=== PATIENT | female | born 1965 | race Caucasian/White ===

== ENCOUNTER 2017-10-31 16:23 | Emergency (ER) | payer MEDICARE, OTHER ==
[~2017-10-31] VITALS: Ht 597.6 cm; Wt 60.0 kg
[~2017-10-31 16:23] MED LIST: ALBU8.5H8 INH; BENZ0.5T38 PO; DULO30CA51 PO; EST1T PO; MELA1TAB28 PO; OLAN2.5T28 PO; TRAM50TA2 PO; TRAZ-218 PO
[2017-10-31 16:27] VITALS: BP 113/65
[2017-10-31] MEDS ORDERED: diphenhydrAMINE 25mg capsule PO ONE (17:20)
[2017-10-31] MEDS ORDERED: LORazepam 1 MG tablet PO ONE (17:20)
[2017-10-31 17:40] LABS: URINE HCG NEGATIVE (NEG)
[2017-10-31 17:41] LABS: BASOPHILS % (AUTO) 0.8 % (0-1); EOSINOPHILS # (AUTO) 0.3 X10'3 (0-0.9); EOSINOPHILS % (AUTO) 4.8 % (0-6); HEMATOCRIT 35.2 % (35.0-45.0); HEMOGLOBIN 12.1 g/dl (12.0-16.0); LYMPHOCYTES % (AUTO) 36.3 % (21-51); MEAN CORPUSCULAR HEMOGLOBIN 29.8 PG (27.0-31.0); MEAN CORPUSCULAR HGB CONC 34.3 % (33.0-36.5); MEAN CORPUSCULAR VOLUME 86.7 FL (78-98); MEAN PLATELET VOLUME 8.9 FL (7.4-10.4); MONOCYTES # (AUTO) 0.4 X10'3 (0-0.9); MONOCYTES % (AUTO) 7.6 % (2-12); NEUTROPHILS # (AUTO) 2.8 X10'3 (1.8-7.7); NEUTROPHILS % (AUTO) 50.5 % (42-75); PLATELET COUNT 238 X10'3 (140-440); RED BLOOD COUNT 4.06 X10'6 (4.20-5.60); RED CELL DISTRIBUTION WIDTH 13.3 % (11.5-14.5); WHITE BLOOD COUNT 5.5 X10'3 (4.5-11.0)
[2017-10-31 17:51] LABS: ALANINE AMINOTRANSFERASE 35 U/L (12-78); ALBUMIN 3.5 G/DL (3.4-5.0); ALBUMIN/GLOBULIN RATIO 1.1 (1.1-1.5); ALKALINE PHOSPHATASE 87 IU/L (46-116); ANION GAP 9 (8-16); ASPARTATE AMINO TRANSFERASE 21 U/L (10-37); BILIRUBIN,TOTAL 0.2 MG/DL (0.1-1.0); BLOOD UREA NITROGEN 14 MG/DL (7-18); BUN/CREATININE RATIO 16.7 (6.6-38.0); CALCIUM 8.8 MG/DL (8.5-10.1); CHLORIDE 102 MMOL/L (99-107); CREATININE 0.84 MG/DL (0.40-0.90); GLUCOSE 93 MG/DL (70-104); POTASSIUM 3.6 MMOL/L (3.5-5.1); SODIUM 139 MMOL/L (135-145); TOTAL CARBON DIOXIDE 28.4 MMOL/L (24-32); TOTAL PROTEIN 6.6 G/DL (6.4-8.2); eGFR 71 ML/MIN
[2017-10-31 17:51] LABS: URINE AMPHETAMINE SCREEN POSITIVE (Neg); URINE BARBITUATE SCREEN NEGATIVE (Neg); URINE BENZODIAZEPINES SCREEN NEGATIVE (Neg); URINE CANNABINOID SCREEN NEGATIVE (Neg); URINE COCAINE SCREEN NEGATIVE (Neg); URINE METHADONE SCREEN NEGATIVE (Neg); URINE OPIATE SCREEN POSITIVE (Neg); URINE PHENCYCLIDINE SCREEN NEGATIVE (Neg)
[2017-10-31 17:54] LABS: CLARITY,URINE CLEAR (Clear); COLOR,URINE YELLOW (Yellow); GLUCOSE, URINE NEGATIVE (Neg); KETONES,URINE NEGATIVE (Neg); LEUKOCYTE ESTERASE ,URINE NEGATIVE (Neg); NITRITES, URINE NEGATIVE (Neg); OCCULT BLOOD,URINE NEGATIVE (Neg); PROTEIN,URINE NEGATIVE (Neg); UROBILINOGEN,URINE 0.2 E.U/dL (0.2-1.0)
[2017-10-31 17:59] LABS: ETHANOL < 0.010 GM/DL (0.0-0.010)
[2017-10-31 18:00] LABS: UA COLLECTION TYPE CLN CATCH MIDSTREAM
== END 2017-10-31 23:19 | disposition home or self-care (01) ==
LOC: ER 16:24
DX: R45.851 Suicidal ideations (principal); F41.9 Anxiety disorder, unspecified; F32.9 Major depressive disorder, single episode, unspecified; F12.10 Cannabis abuse, uncomplicated; F15.10 Other stimulant abuse, uncomplicated; M19.90 Unspecified osteoarthritis, unspecified site; G89.29 Other chronic pain; M25.572 Pain in left ankle and joints of left foot; Z88.0 Allergy status to penicillin; Z88.1 Allergy status to other antibiotic agents
CPT/HCPCS: 36415; 80053; 80305; 80320; 81003; 81025; 84443; 85025; 99285; Q0163

== ENCOUNTER 2017-10-31 21:00 | Inpatient (IN) | payer MEDICARE, OTHER ==
[~2017-10-31] VITALS: Ht 175.3 cm; Wt 63.9 kg
[2017-10-31 23:12] VITALS: BP 81/49
[2017-10-31 23:15] VITALS: BP 104/66
[2017-10-31] MEDS ORDERED: acetaminophen 325mg tablet PO PRN ×2 (23:20)
[2017-10-31] MEDS ORDERED: traZODone 50mg tablet PO PRN (23:20)
[2017-10-31] MEDS ORDERED: mag hydrox/Alum hydrox/simeth 30ml oral suspension PO PRN (23:20)
[2017-10-31] MEDS ORDERED: LORazepam 0.5 MG tablet PO PRN (23:20)
[2017-10-31] MEDS ORDERED: magnesium hydroxide 30ml (MOM) UD suspension PO PRN (23:20)
[2017-11-01] MEDS ORDERED: albuterol 2.5 MG/3 ML nebule NEB PRN (00:35)
[2017-11-01] MEDS: traMADol 50MG tablet PO SCH ×2 (02:00→08:09)
[2017-11-01 08:00] VITALS: BP 98/61
[2017-11-01] MEDS: estradiol 1mg tablet PO SCH (08:00)
[2017-11-01 09:10] LABS: HEMOGLOBIN A1C 5.8 % (4.5-6.2)
[2017-11-01 09:15] LABS: CHOL/HDL RATIO 3.2 (0.00-4.99); CHOLESTEROL 199 MG/DL (0-200); HDL CHOLESTEROL 63 MG/DL (35-60); LDL CHOLESTEROL 114 MG/DL (50-100); TRIGLYCERIDES 104 MG/DL (20-135)
[2017-11-01] MEDS ORDERED: venlafaxine XR 37.5mg cap (Q24H) PO ONE (09:15)
[2017-11-01] MEDS ORDERED: normal saline 1000ml 1,000 ML IV SCH (09:16)
[2017-11-01] MEDS: potassium chloride 10mEq ER tablet PO SCH (09:20)
[2017-11-01] MEDS ORDERED: LORazepam 0.5 MG tablet PO PRN (09:20)
[2017-11-01 09:43] LABS: MAGNESIUM 2.1 MG/DL (1.5-2.4); PHOSPHORUS 4.1 MG/DL (2.3-4.5)
[2017-11-01] MEDS: traMADol 50MG tablet PO PRN ×2 (13:44→19:56)
[2017-11-01 20:00] VITALS: BP 97/60
[2017-11-02] MEDS: pantoprazole 40mg Tablet.DR PO SCH (06:57)
[2017-11-02] MEDS: traMADol 50MG tablet PO PRN ×3 (06:57→19:08)
[2017-11-02] MEDS: estradiol 1mg tablet PO SCH (07:51)
[2017-11-02] MEDS: venlafaxine XR 75mg capsule (Q24H) PO SCH (07:51)
[2017-11-02] MEDS: potassium chloride 10mEq ER tablet PO SCH (07:51)
[2017-11-02 08:00] VITALS: BP 107/64
[2017-11-02] MEDS ORDERED: SUMAtriptan 25 MG tablet PO ONE (09:35)
[2017-11-02] MEDS: traZODone 50mg tablet PO PRN (20:11)
[2017-11-02 22:25] VITALS: BP 92/68
[2017-11-03] MEDS: traMADol 50MG tablet PO PRN ×2 (03:24→16:12)
[2017-11-03] MEDS: aspirin/acetaminophen/caffeine tablet PO PRN ×2 (07:06→19:41)
[2017-11-03 08:00] VITALS: BP 103/64
[2017-11-03] MEDS: pantoprazole 40mg Tablet.DR PO SCH (08:10)
[2017-11-03] MEDS: venlafaxine XR 75mg capsule (Q24H) PO SCH (08:10)
[2017-11-03] MEDS: estradiol 1mg tablet PO SCH (08:10)
[2017-11-03] MEDS: potassium chloride 10mEq ER tablet PO SCH (08:10)
[2017-11-03 20:19] VITALS: BP 92/45
[2017-11-03] MEDS: traZODone 50mg tablet PO PRN (20:55)
[2017-11-03] MEDS: gabapentin 100mg capsule PO SCH (20:55)
[2017-11-04] MEDS: traMADol 50MG tablet PO PRN ×3 (05:40→19:17)
[2017-11-04] MEDS: pantoprazole 40mg Tablet.DR PO SCH (07:09)
[2017-11-04 08:00] VITALS: BP 105/52
[2017-11-04] MEDS: venlafaxine XR 75mg capsule (Q24H) PO SCH (08:14)
[2017-11-04] MEDS: estradiol 1mg tablet PO SCH (08:14)
[2017-11-04] MEDS: potassium chloride 10mEq ER tablet PO SCH (08:14)
[2017-11-04] MEDS: gabapentin 100mg capsule PO SCH ×3 (08:14→20:32)
[2017-11-04] MEDS: aspirin/acetaminophen/caffeine tablet PO PRN (11:38)
[2017-11-04 20:00] VITALS: BP 93/57
[2017-11-04] MEDS: traZODone 50mg tablet PO PRN (20:32)
[2017-11-05] MEDS: aspirin/acetaminophen/caffeine tablet PO PRN (06:59)
[2017-11-05] MEDS: potassium chloride 10mEq ER tablet PO SCH (07:54)
[2017-11-05] MEDS: pantoprazole 40mg Tablet.DR PO SCH (07:54)
[2017-11-05] MEDS: gabapentin 100mg capsule PO SCH ×3 (07:54→20:44)
[2017-11-05] MEDS: venlafaxine XR 75mg capsule (Q24H) PO SCH (07:54)
[2017-11-05] MEDS: estradiol 1mg tablet PO SCH (07:54)
[2017-11-05 08:00] VITALS: BP 110/64
[2017-11-05] MEDS: traMADol 50MG tablet PO PRN (13:04)
[2017-11-05 19:34] VITALS: BP 104/64
[2017-11-05] MEDS: traZODone 50mg tablet PO PRN (20:43)
[2017-11-06] MEDS: aspirin/acetaminophen/caffeine tablet PO PRN (03:26)
[2017-11-06] MEDS: traZODone 50mg tablet PO PRN ×2 (03:35→20:15)
[2017-11-06] MEDS: venlafaxine XR 75mg capsule (Q24H) PO SCH (07:45)
[2017-11-06] MEDS: pantoprazole 40mg Tablet.DR PO SCH (07:45)
[2017-11-06] MEDS: estradiol 1mg tablet PO SCH (07:45)
[2017-11-06] MEDS: potassium chloride 10mEq ER tablet PO SCH (07:45)
[2017-11-06] MEDS: gabapentin 100mg capsule PO SCH ×3 (07:47→20:15)
[2017-11-06 08:00] VITALS: BP 90/52
[2017-11-06] MEDS: traMADol 50MG tablet PO PRN (13:16)
[2017-11-06 19:00] VITALS: BP 100/61
[2017-11-06] MEDS: prazosin 1mg capsule PO SCH (21:00)
[2017-11-07 08:00] VITALS: BP 95/45
[2017-11-07] MEDS: estradiol 1mg tablet PO SCH (08:30)
[2017-11-07] MEDS: gabapentin 100mg capsule PO SCH ×3 (08:30→20:19)
[2017-11-07] MEDS: pantoprazole 40mg Tablet.DR PO SCH (08:30)
[2017-11-07] MEDS: potassium chloride 10mEq ER tablet PO SCH (08:30)
[2017-11-07] MEDS: venlafaxine XR 75mg capsule (Q24H) PO SCH (08:30)
[2017-11-07] MEDS: traZODone 50mg tablet PO PRN (20:18)
[2017-11-07] MEDS: prazosin 1mg capsule PO SCH (20:21)
[2017-11-07 20:43] VITALS: BP 103/60
[2017-11-08 08:00] VITALS: BP 98/59
[2017-11-08] MEDS: gabapentin 100mg capsule PO SCH ×2 (08:09→12:43)
[2017-11-08] MEDS: pantoprazole 40mg Tablet.DR PO SCH (08:09)
[2017-11-08] MEDS: potassium chloride 10mEq ER tablet PO SCH (08:09)
[2017-11-08] MEDS: venlafaxine XR 75mg capsule (Q24H) PO SCH (08:09)
[2017-11-08] MEDS: estradiol 1mg tablet PO SCH (08:09)
[2017-11-08] MEDS ORDERED: POTA10TA19 PO (13:47)
[2017-11-08] MEDS ORDERED: GABA-532 PO (13:47)
[2017-11-08] MEDS ORDERED: VENL75CA61 PO (13:47)
[2017-11-08] MEDS ORDERED: TRAM50TA2 PO (13:47)
[2017-11-08] MEDS ORDERED: TRAZ-219 PO (13:47)
== END 2017-11-08 14:45 | disposition home or self-care (01) | DRG 885 ==
LOC: ADULT MH 21:00
PROVIDERS: ADMIT Psychiatry & Neurology Psychiatry; ATTEND Psychiatry & Neurology Psychiatry
DX: F33.2 Major depressive disorder, recurrent severe without psychotic features (principal); R45.851 Suicidal ideations; F41.9 Anxiety disorder, unspecified; I95.9 Hypotension, unspecified; F12.10 Cannabis abuse, uncomplicated; F20.9 Schizophrenia, unspecified; E10.9 Type 1 diabetes mellitus without complications; G89.4 Chronic pain syndrome; M25.572 Pain in left ankle and joints of left foot; M41.9 Scoliosis, unspecified; M19.029 Primary osteoarthritis, unspecified elbow; G43.909 Migraine, unspecified, not intractable, without status migrainosus; F15.21 Other stimulant dependence, in remission; K31.9 Disease of stomach and duodenum, unspecified; Z90.710 Acquired absence of both cervix and uterus; Z79.4 Long term (current) use of insulin; Z88.0 Allergy status to penicillin; Z88.1 Allergy status to other antibiotic agents; Z88.8 Allergy status to other drugs, medicaments and biological substances; Z85.41 Personal history of malignant neoplasm of cervix uteri
CPT/HCPCS: 36415; 80061; 83036; 83735; 84100; 87070; 93005; 99285; J7030

== ENCOUNTER 2018-10-13 15:45 | Emergency (ER) | payer MEDICARE ==
[~2018-10-13] VITALS: Ht 175.3 cm; Wt 69.0 kg
[~2018-10-13 15:45] MED LIST changes: -BENZ0.5T38 PO; -DULO30CA51 PO; +GABA-532 PO; -MELA1TAB28 PO; -OLAN2.5T28 PO; +POTA10TA19 PO; -TRAZ-218 PO; +TRAZ-219 PO; +VENL75CA61 PO
[2018-10-13 15:52] VITALS: BP 128/53
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
--- NOTE | 2018-10-13 16:08 | NUR ---
PATIENT AMBULATED TO XRAY WITH STEADY GAIT.
[2018-10-13] MEDS ORDERED: TRAM50TA2 PO (16:29)
== END 2018-10-13 16:49 | disposition home or self-care (01) ==
LOC: ER 15:45
DX: R07.81 Pleurodynia (principal); R07.89 Other chest pain; M19.90 Unspecified osteoarthritis, unspecified site; G89.29 Other chronic pain; F32.9 Major depressive disorder, single episode, unspecified; F12.90 Cannabis use, unspecified, uncomplicated; F15.90 Other stimulant use, unspecified, uncomplicated; Z98.890 Other specified postprocedural states; Z88.0 Allergy status to penicillin; Z88.1 Allergy status to other antibiotic agents; Z79.899 Other long term (current) drug therapy; V43.92XA Unspecified car occupant injured in collision with other type car in traffic accident, initial encounter; Y93.89 Activity, other specified; Y92.488 Other paved roadways as the place of occurrence of the external cause; Y99.8 Other external cause status
CPT/HCPCS: 71101; 93005; 99283

== ENCOUNTER 2019-01-13 12:43 | Inpatient (IN) | payer MEDICARE ==
[~2019-01-13] VITALS: Ht 175.3 cm; Wt 58.2 kg
[2019-01-13] MEDS ORDERED: magnesium hydroxide 30ml (MOM) UD suspension PO PRN (13:25)
[2019-01-13] MEDS ORDERED: acetaminophen 325mg tablet PO PRN (13:25)
[2019-01-13] MEDS ORDERED: NICOTINE POLACRILEX 2 MG LOZENGE BC PRN (13:25)
[2019-01-13] MEDS ORDERED: mag hydrox/Alum hydrox/simeth 30ml oral suspension PO PRN (13:25)
[2019-01-13] MEDS ORDERED: loperamide 2mg capsule PO PRN (13:25)
[2019-01-13] MEDS ORDERED: ASPI-1265 PO (13:59)
[2019-01-13] MEDS ORDERED: ATOR20TA PO (13:59)
[2019-01-13] MEDS ORDERED: TRAM50TA2 PO (13:59)
[2019-01-13] MEDS ORDERED: VENL-190 PO (13:59)
[2019-01-13] MEDS ORDERED: traMADol 50MG tablet PO PRN (14:10)
[2019-01-13] MEDS ORDERED: albuterol 2.5 MG/3 ML nebule NEB PRN (14:10)
--- NOTE | 2019-01-13 16:41 | NUR ---
Admit note: Pt arrived today at 1440 on [facility] on 5150 for DTS. Pt attempted suicide by overdosing and propane and stated "I wont be safe if I go home, Im just being honest. This one (attempt) should have stuck." Pt continues to present with suicidal ideation. Pt took 4 sleeping pills and turned her propane on in her trailer. Neighbors smelled propane and called 911. Pt cooperative with admission.
[2019-01-13] MEDS: atorvastatin 20mg tablet PO SCH (20:39)
[2019-01-14] MEDS: LORazepam 1 MG tablet PO PRN ×2 (00:53→16:59)
[2019-01-14] MEDS: acetaminophen 325mg tablet PO PRN ×4 (00:58→20:45)
--- NOTE | 2019-01-14 04:58 | NUR ---
Nursing Progress Note: Legal hold:515 Client on voluntary/involuntary status for GD/DTS/DTO: DTS Report received from nurse with use of SBAR Why are they here: [facility] for DTS. Pt attempted suicide by overdosing and propane and stated "I wont be safe if I go home, Im just being honest. This one (attempt) should have stuck." Pt continues to present with suicidal ideation. Pt took 4 sleeping pills and turned her propane on in her trailer. Neighbors smelled propane and called 911. Assessment What has happened this shift: Pt isolates in her room the entirety of the shift. She lays in bed in the dark and sleeps on and off. Pt states she is feeling very depressed but denies any current SI. Denies HI/H/VH. She is tearful but cooperative with 1:1 assessment and medication compliant. She said she has a back brace at home which helps with her back pain, but it was not brought to the hospital. S/I, H/I: "not right now" A/VH: denies Sleep: see sleep assessment notation ADL's: independent Group attendance: no Were meds taken: yes Any med S/E: none reported or observed Mental Status Exam Appearance: green scrubs Eye contact: indirect Behavior: isolative Speech:clear Mood: depressed Affect: constricted Thought process: linear Thought Content: in pain, wishes she had her back brace Cognition: fair Insight:poor Judgment: poor Interventions PRN's used:ativan, tylenol Therapeutic interventions: 1:1 assessment, medication education, therapeutic listening, Q15 minute safety checks Restraints/seclusion/emergency medication: none Justification of Continued Inpatient Treatment: Pt has recent suicide attempt and cannot guarantee her safety if she is to go home at this point. PT needs medication stabilization.
[2019-01-14 07:00] VITALS: BP 106/64
[2019-01-14 07:39] LABS: HEMOGLOBIN A1C 5.4 % (4.5-6.2)
[2019-01-14 07:49] LABS: CHOL/HDL RATIO 2.7 (0.00-4.99); CHOLESTEROL 240 MG/DL (0-200); HDL CHOLESTEROL 88 MG/DL (35-60); LDL CHOLESTEROL 135 MG/DL (50-100); TRIGLYCERIDES 108 MG/DL (20-135)
[2019-01-14] MEDS: aspirin 81mg tab.chew PO SCH (07:58)
[2019-01-14] MEDS: venlafaxine XR 75mg capsule (Q24H) PO SCH (07:59)
[2019-01-14] MEDS: estradiol 1mg tablet PO SCH ×2 (08:00→09:18)
[2019-01-14 08:38] VITALS: BP 96/58
--- NOTE | 2019-01-14 09:06 | NUR ---
Met with Ct to complete Psychosocial Assessment. She reported she overdosed on 4 trazadone and left propane on in her mobile home in a suicide attempt. She reported she was recently served with divorce paperwork and her has moved in with someone else. 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 She also is unable to see her grandkids due to her meth use. Ct reported she is interested in seeking out-patient drug and alcohol tx. Ct currently sees Dr Segovia. TAVO Mejia Addendum: 01/14/19 at 0915 by Lucero HENLEY Amended: Links added.
--- NOTE | 2019-01-14 13:00 | NUR ---
Called [facility] to schedule Ct a follow up appt with Dr Segovia for 01/27/19 at 1:30 pm. TAVO Mejia
--- NOTE | 2019-01-14 18:02 | NUR ---
Nursing Progress Note: Legal hold:515 Client on voluntary/involuntary status for GD/DTS/DTO: DTS Report received from nurse with use of SBAR Why are they here: [facility] for DTS. Pt attempted suicide by overdosing and propane and stated "I wont be safe if I go home, Im just being honest. This one (attempt) should have stuck." Pt continues to present with suicidal ideation. Pt took 4 sleeping pills and turned her propane on in her trailer. Neighbors smelled propane and called 911. Assessment What has happened this shift: Pt isolates in her room the entirety of the shift. She lays in bed in the dark and sleeps on and off. Pt denies any current SI. Denies HI/H/VH. She is tearful but cooperative with 1:1 assessment and medication compliant. She said she has a back brace at home which helps with her back pain, but it was not brought to the hospital, physical therapy was ordered ans recomendation of LSO brace for patient was messaged to physician, awaiting doctors orders. S/I, H/I: "not right now" A/VH: denies Sleep: minimal due to back pain ADL's: independent Group attendance: yes Were meds taken: yes Any med S/E: none reported or observed Mental Status Exam Appearance: green scrubs Eye contact:direct Behavior: isolative Speech:clear Mood: depressed Affect: constricted Thought process: linear Thought Content: in pain, wishes she had her back brace Cognition: fair Insight: fair Judgment: poor Interventions PRN's used: tylenol Therapeutic interventions: 1:1 assessment, medication education, therapeutic listening, Q15 minute safety checks Restraints/seclusion/emergency medication: none Justification of Continued Inpatient Treatment: Pt has recent suicide attempt patient states she has spoken with family and is glad that she was found and her suicide attempt failed, yet patient spends much of her day in her dark room without any other interactions.
[2019-01-14 20:00] VITALS: BP 100/55
[2019-01-14] MEDS: traZODone 50mg tablet PO PRN (20:44)
[2019-01-14] MEDS: atorvastatin 20mg tablet PO SCH (20:44)
[2019-01-14] MEDS: celeCOXIB 100mg capsule PO SCH (20:45)
--- NOTE | 2019-01-15 01:58 | NUR ---
Nursing Progress Note: Legal hold:5149 Client on voluntary/involuntary status for GD/DTS/DTO: DTS Report received from nurse Jenkins with use of SBAR Why are they here: [facility] for DTS. Pt attempted suicide by overdosing and propane and stated "I wont be safe if I go home, Im just being honest. This one (attempt) should have stuck." Pt continues to present with suicidal ideation. Pt took 4 sleeping pills and turned her propane on in her trailer. Neighbors smelled propane and called 911. Assessment What has happened this shift: Pt isolated to room majority of shift; left room to attend HS snack then returned to room to sleep. Pt states her recent SA was situational and due to "feeling hopeless about being able to see my grand kids." Pt states her pain makes her anxiety and depression worse, as well, and that at home she has a "stuffed animal to cuddle at night, and a brace that makes my back feel better." Pt states she didn't get adequate sleep which is why she is sleeping now. RN informed pt of the newly prescribed PRN sleep medication and pt stated she would like to try it and "hope it works. I'm very tired and ready to go home." Pt states she will be attending NA meetings once discharged because she knows her drug use hx does not help her relationships. Pt called a "couple times, and I left messages but he's not answering." Pt states they are currently but would not go into further detail. S/I, H/I: Denies A/VH: Denies Sleep: See Sleep Assessment; pt states she wakes every 2 hours due to pain ADL's: Independent Group attendance: N/A Were meds taken: Yes Any med S/E: None reported nor observed Mental Status Exam Appearance: Unit green scrubs and nonskid socks Eye contact: Intermittent Behavior: Withdrawn to self, Attended HS snack then returned to isolate in room Speech: Clear Mood: Depressed (2/10), Anxious (6/10) Affect: Constricted Thought process: Linear Thought Content: in pain, wishes she had her back brace Cognition: fair Insight: fair Judgment: poor Interventions PRN's used: Tylenol, Trazodone Therapeutic interventions: 1:1 assessment, medication education, therapeutic listening, Q15 minute safety checks Restraints/seclusion/emergency medication: none Justification of Continued Inpatient Treatment: Pt has recent suicide attempt patient states she has spoken with family and is glad that she was found and her suicide attempt failed, yet patient spends much of her day in her dark room without any other interactions.
[2019-01-15 07:57] LABS: EOSINOPHILS % (AUTO) 0 % (0-6); HEMATOCRIT 41.6 % (35.0-45.0); LYMPHOCYTES # (AUTO) 1.6 X10'3 (1.1-4.8); LYMPHOCYTES % (AUTO) 42.4 % (21-51); MEAN CORPUSCULAR HEMOGLOBIN 30.5 PG (27.0-31.0); MEAN CORPUSCULAR HGB CONC 33.7 g/dL (33.0-36.5); MEAN CORPUSCULAR VOLUME 90.3 FL (78-98); MEAN PLATELET VOLUME 9.1 FL (7.4-10.4); MONOCYTES # (AUTO) 0.3 X10'3 (0-0.9); MONOCYTES % (AUTO) 8.8 % (2-12); NEUTROPHILS # (AUTO) 1.8 X10'3 (1.8-7.7); NEUTROPHILS % (AUTO) 47.8 % (42-75); PLATELET COUNT 220 X10'3 (140-440); RED BLOOD COUNT 4.61 X10'6 (4.20-5.60); RED CELL DISTRIBUTION WIDTH 13.2 % (11.5-14.5); WHITE BLOOD COUNT 3.7 X10'3 (4.5-11.0)
[2019-01-15 08:00] VITALS: BP 102/54
[2019-01-15 08:20] LABS: ALANINE AMINOTRANSFERASE 104 U/L (12-78); ALBUMIN 3.4 G/DL (3.4-5.0); ALBUMIN/GLOBULIN RATIO 0.9 (1.1-1.5); ALKALINE PHOSPHATASE 110 IU/L (46-116); ANION GAP 10 (8-16); ASPARTATE AMINO TRANSFERASE 71 U/L (10-37); BILIRUBIN,TOTAL 0.2 MG/DL (0.1-1.0); BLOOD UREA NITROGEN 20 MG/DL (7-18); BUN/CREATININE RATIO 29.9 (6.6-38.0); CHLORIDE 104 MMOL/L (99-107); CREATININE 0.67 MG/DL (0.40-0.90); GLUCOSE 100 MG/DL (70-104); POTASSIUM 4.4 MMOL/L (3.5-5.1); SODIUM 137 MMOL/L (135-145); TOTAL CARBON DIOXIDE 23.2 MMOL/L (24-32); TOTAL PROTEIN 7.1 G/DL (6.4-8.2); eGFR > 90 ML/MIN
[2019-01-15] MEDS: venlafaxine XR 75mg capsule (Q24H) PO SCH (08:23)
[2019-01-15] MEDS: celeCOXIB 100mg capsule PO SCH ×2 (08:23→21:05)
[2019-01-15] MEDS: aspirin 81mg tab.chew PO SCH (08:23)
[2019-01-15] MEDS: estradiol 1mg tablet PO SCH (08:23)
[2019-01-15] MEDS: LORazepam 1 MG tablet PO PRN ×2 (09:59→16:19)
[2019-01-15] MEDS: acetaminophen 325mg tablet PO PRN (15:24)
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
--- NOTE | 2019-01-15 16:49 | NUR ---
Nursing Progress Note: Legal hold:[id number] Client on voluntary/involuntary status for GD/DTS/DTO: DTS Report received from nurse with use of SBAR Why are they here: [facility] for DTS. Pt attempted suicide by overdosing and propane and stated "I wont be safe if I go home, Im just being honest. This one (attempt) should have stuck." Pt continues to present with suicidal ideation. Pt took 4 sleeping pills and turned her propane on in her trailer. Neighbors smelled propane and called 911. Assessment What has happened this shift: Received pt resting in bed w/o distress at the beginning of shift. Pt A&O X4, calm, pleasant to talk with and cooperative. Took AM meds w/o issue and participated in meals and groups. After PM group, she was upset and anxious related to the childhood trauma the group brought up. We discussed these feelings and allowed her to vent r/t how she was treated by her mom and the feelings related to her current divorce. She received ativan PRN X 2 during this shift. P{t requested a stuffed animal, and staff will bring one tomorrow. Pt denies any current SI. Denies HI/H/VH. Physical therapy brought her a back brace which she is currently wearing. Received tylenol for back pain X1 this shift. S/I, H/I: Denies A/VH: denies Sleep: 8 hrs last night per noc shift ADL's: independent Group attendance: yes Were meds taken: yes Any med S/E: none reported or observed Mental Status Exam Appearance: green scrubs Eye contact:direct Behavior: isolative Speech:clear Mood: depressed Affect: constricted Thought process: linear Thought Content: R/T paiful back and painful childhood experiences and her current divorce Cognition: fair Insight: fair Judgment: poor Interventions PRN's used: tylenol, Ativan X2 Therapeutic interventions: 1:1 assessment, medication education, therapeutic listening, Q15 minute safety checks Restraints/seclusion/emergency medication: none Addendum: 01/15/19 at 1650 by Jesse Reynaga RN Justification of Continued Inpatient Treatment: Pt has recent suicide attempt patient states she has spoken with family and is glad that she was found and her suicide attempt failed, yet patient spends much of her day in her dark room without any other interactions.
[2019-01-15 20:00] VITALS: BP 95/44
[2019-01-15] MEDS: atorvastatin 20mg tablet PO SCH (21:04)
[2019-01-16] MEDS: LORazepam 1 MG tablet PO PRN (02:59)
--- NOTE | 2019-01-16 03:47 | NUR ---
Nursing Progress Note: Legal hold:515 Client on voluntary/involuntary status for GD/DTS/DTO: DTS Report received from ADEN Barnes with use of SBAR Why are they here: [facility] for DTS. Pt attempted suicide by overdosing and propane and stated "I wont be safe if I go home, Im just being honest. This one (attempt) should have stuck." Pt continues to present with suicidal ideation. Pt took 4 sleeping pills and turned her propane on in her trailer. Neighbors smelled propane and called 911. Assessment What has happened this shift: Patient resting in bed awake at the beginning of shift. Patient isolative, came out of room to group room for visitation with spouse. Her SO brought her a artur bear she was excited for stating "he cares enough to bring me this," and continued to explain they're currently , emphasizing "not ." Patient expressed plan to check into a drug and alcohol rehab upon discharge from the unit and explained possible D/C 01/16. Patient denies SI, HI, A/VH. Patient pleasant and cooperative with all care. S/I, H/I: Denies A/VH: denies Sleep: refer to sleep assess. ADL's: independent Group attendance: no groups this shift Were meds taken: yes Any med S/E: none reported or observed Mental Status Exam Appearance: green scrubs, appropriate for the unit Eye contact:direct Behavior: isolative Speech:clear, steady, audible Mood: depressed Affect: constricted Thought process: linear Thought Content: discharge and separation Cognition: fair Insight: fair Judgment: poor Interventions PRN's used: Ativan Therapeutic interventions: 1:1 assessment, medication education, therapeutic listening, Q15 minute safety checks Restraints/seclusion/emergency medication: none Justification of Continued Inpatient Treatment: Pt has recent suicide attempt patient states she has spoken with family and is glad that she was found and her suicide attempt failed, yet patient spends much of her day in her dark room without any other interactions.
[2019-01-16 08:00] VITALS: BP 90/44
[2019-01-16] MEDS: estradiol 1mg tablet PO SCH (08:36)
[2019-01-16] MEDS: venlafaxine XR 75mg capsule (Q24H) PO SCH (08:36)
[2019-01-16] MEDS: aspirin 81mg tab.chew PO SCH (08:36)
[2019-01-16] MEDS: celeCOXIB 100mg capsule PO SCH ×2 (08:36→20:29)
[2019-01-16] MEDS: hydrOXYzine 25 MG tablet PO PRN ×2 (09:20→15:06)
--- NOTE | 2019-01-16 17:26 | NUR ---
Nursing Progress Note: Legal hold:5150 Client on voluntary/involuntary status for GD/DTS/DTO: DTS Report received from Alva SAMANIEGO Why are they here: Pt arrived to [facility] on 5150 for DTS. Pt attempted suicide by overdosing and propane and stated "I wont be safe if I go home, Im just being honest. This one (attempt) should have stuck." Pt continues to present with suicidal ideation. Pt took 4 sleeping pills and turned her propane on in her trailer. Neighbors smelled propane and called 911. Assessment What has happened this shift: Patient was sleeping in bed at change of shift and up before breakfast. Patient kept on talking to RN about her 5150 being up today and she gets to go home. RN kept telling her that this decision is up to the doctor. Patient denies being suicidal and states she is not going to do drugs anymore. RN believes patient is minimizing her suicide attempt. Patient perseverated on being able to go home because she is not a DTS or DTOs. Patient was place on a 5250 in the afternoon and patient was not happy. Patient went to both groups today and was sitting at the table chatting with peers. S/I, H/I: Denies A/VH: denies Sleep: laid down a couple of times today. ADL's: independent Group attendance: yes Were meds taken: yes Any med S/E: none reported or observed Mental Status Exam Appearance: green scrubs Eye contact:direct Behavior: social Speech:clear Mood: depressed Affect: flat Thought process: linear Thought Content: wanting to go home. Cognition: fair Insight: fair Judgment: poor Interventions PRN's used: tylenol, Ativan X2 Therapeutic interventions: 1:1 assessment, medication education, therapeutic listening, Q15 minute safety checks Restraints/seclusion/emergency medication: none
[2019-01-16 20:00] VITALS: BP 133/67
[2019-01-16 20:01] VITALS: BP 89/34
--- NOTE | 2019-01-16 20:01 | NUR ---
Omit 1999 VS 01/16 and refer to 2000 VS
[2019-01-16] MEDS: atorvastatin 20mg tablet PO SCH (20:29)
[2019-01-16] MEDS: traZODone 50mg tablet PO PRN (20:34)
--- NOTE | 2019-01-17 03:16 | NUR ---
Nursing Progress Note: Legal hold:5149 Client on voluntary/involuntary status for GD/DTS/DTO: DTS Report received from ADEN Barnes with use of SBAR Why are they here: Pt arrived to [facility] on 5150 for DTS. Pt attempted suicide by overdosing and propane and stated "I wont be safe if I go home, Im just being honest. This one (attempt) should have stuck." Pt continues to present with suicidal ideation. Pt took 4 sleeping pills and turned her propane on in her trailer. Neighbors smelled propane and called 911. Assessment What has happened this shift: Patient sitting up in bed in the dark at the beginning of shift. Patient mostly isolates but responsive to peers when peers initiate conversation. Patient visited with her daughter in the group room and stated her enjoyment with their visit. Patient ate snack in group room and requested Trazodone with HS medication for insomnia. Patient went to bed shortly after receiving medications where she has remained. Patient's daughter dropped patient personal items off and [facility] Evelyn took inventory. Patient items appropriate for the unit given to the patient. Patient remains pleasant and cooperative with all care, denying all symptoms at this time. S/I, H/I: Denies A/VH: denies Sleep: refer to sleep assess. ADL's: independent Group attendance: no groups this shift Were meds taken: yes Any med S/E: none reported or observed Mental Status Exam Appearance: green scrubs, appropriate for the unit Eye contact:direct Behavior: isolative, pleasant and cooperative Speech:clear, steady, audible Mood: depressed Affect: constricted Thought process: linear Thought Content: visitation with daughter Cognition: fair Insight: fair Judgment: poor Interventions PRN's used: Trazodone Therapeutic interventions: 1:1 assessment, medication education, therapeutic listening, Q15 minute safety checks Restraints/seclusion/emergency medication: none Justification of Continued Inpatient Treatment: Pt has recent suicide attempt patient states she has spoken with family and is glad that she was found and her suicide attempt failed, yet patient spends much of her day in her dark room without any other interactions. Addendum: 01/17/19 at 0357 by Alexa Levin RN Legal hold: [id number]
[2019-01-17 08:00] VITALS: BP 93/47
[2019-01-17] MEDS: aspirin 81mg tab.chew PO SCH (08:18)
[2019-01-17] MEDS: estradiol 1mg tablet PO SCH (08:19)
[2019-01-17] MEDS: venlafaxine XR 75mg capsule (Q24H) PO SCH (08:19)
[2019-01-17] MEDS: celeCOXIB 100mg capsule PO SCH ×2 (08:19→20:25)
[2019-01-17] MEDS: hydrOXYzine 25 MG tablet PO PRN (13:54)
--- NOTE | 2019-01-17 18:07 | NUR ---
Nursing Progress Note: Legal hold:515 Client on voluntary/involuntary status for GD/DTS/DTO: DTS Report received from Alva SAMANIEGO Why are they here: Pt arrived to [facility] on 5150 for DTS. Pt attempted suicide by overdosing and propane and stated "I wont be safe if I go home, Im just being honest. This one (attempt) should have stuck." Pt continues to present with suicidal ideation. Pt took 4 sleeping pills and turned her propane on in her trailer. Neighbors smelled propane and called 911. Assessment What has happened this shift: Patient was sleeping in bed at change of shift and up before breakfast. Patient states she is not happy she is here but she is making the best of it. Patient a little more social today. Patient went to morning group. Patient denies suicidal ideation and states she is looking forward to going home. Patient appears to be minimizing her suicide attempt and said she was just trying to get some sleep. Patient given Tylenol for a KOHLI and Atarax for anxiety. Patient is pleasant. Patient had a normal BM yesterday. S/I, H/I: Denies A/VH: denies Sleep: laid down a couple of times today. ADL's: independent Group attendance: yes Were meds taken: yes Any med S/E: none reported or observed Mental Status Exam Appearance: patient's Eye contact:direct Behavior: social Speech:clear Mood: depressed Affect: pleasant Thought process: linear Thought Content: wanting to go home. Cognition: fair Insight: fair Judgment: poor Interventions PRN's used: tylenol, Ativan X2 Therapeutic interventions: 1:1 assessment, medication education, therapeutic listening, Q15 minute safety checks Restraints/seclusion/emergency medication: none
[2019-01-17] MEDS: LORazepam 1 MG tablet PO PRN (19:23)
[2019-01-17 19:47] VITALS: BP 102/52
[2019-01-17] MEDS: atorvastatin 20mg tablet PO SCH (20:25)
[2019-01-17] MEDS: traZODone 50mg tablet PO PRN (20:56)
--- NOTE | 2019-01-18 03:56 | NUR ---
Nursing Progress Note: Legal hold:525 Client on voluntary/involuntary status for GD/DTS/DTO: DTS Report received from ADEN Barnes with use of SBAR Why are they here: Pt arrived to [facility] on 5150 for DTS. Pt attempted suicide by overdosing and propane and stated "I wont be safe if I go home, Im just being honest. This one (attempt) should have stuck." Pt continues to present with suicidal ideation. Pt took 4 sleeping pills and turned her propane on in her trailer. Neighbors smelled propane and called 911. Assessment What has happened this shift: Patient sitting up in bed, reading in the dark at the beginning of shift. Patient came out of her room and socialized with peers during HS snack. Patient remains pleasant and cooperative with all care. She c/o increased anxiety while in the group room and provided PRN Ativan upon request. During her medication pass she requested PRN Trazodone. Patient denies all symptoms and states "I just want to go home." S/I, H/I: Denies A/VH: denies Sleep: refer to sleep assess. ADL's: independent Group attendance: no groups this shift Were meds taken: yes Any med S/E: none reported or observed Mental Status Exam Appearance: Personal apparel, appropriate for the unit Eye contact:direct Behavior: socializing, pleasant and cooperative Speech:clear, steady, audible Mood: "ok" Affect: constricted Thought process: linear Thought Content: discharge Cognition: fair Insight: fair Judgment: poor Interventions PRN's used: Trazodone and Ativan, effective results Therapeutic interventions: 1:1 assessment, medication education, therapeutic listening, Q15 minute safety checks Restraints/seclusion/emergency medication: none Justification of Continued Inpatient Treatment: Pt has recent suicide attempt patient states she has spoken with family and is glad that she was found and her suicide attempt failed, yet patient spends much of her day in her dark room without any other interactions.
[2019-01-18 07:22] VITALS: BP 97/58
[2019-01-18] MEDS: aspirin 81mg tab.chew PO SCH (08:21)
[2019-01-18] MEDS: venlafaxine XR 75mg capsule (Q24H) PO SCH (08:21)
[2019-01-18] MEDS: estradiol 1mg tablet PO SCH (08:21)
[2019-01-18] MEDS: celeCOXIB 100mg capsule PO SCH ×2 (08:21→20:39)
--- NOTE | 2019-01-18 11:49 | NUR ---
Initial: Pt admit with depression. Pt on a regular diet documented with 75-100% PO intake meeting nutrient needs. LBM 01/14 with MoM PRN not yet given. D/w dietary to send prunes on next meal tray. No edema or wounds. No nutrition diagnosis at this time. Will continue to follow. Recommendations: 1) Continue with regular diet 2) Bowel care 3) Wt per rx Addendum: 01/18/19 at [address] Amended: Links added.
[2019-01-18] MEDS: hydrOXYzine 25 MG tablet PO PRN (14:50)
[2019-01-18] MEDS: LORazepam 1 MG tablet PO PRN (15:57)
--- NOTE | 2019-01-18 17:09 | NUR ---
Nursing Progress Note: Legal hold:515 Client on voluntary/involuntary status for GD/DTS/DTO: DTS Report received from Alva SAMANIEGO Why are they here: Pt arrived to [facility] for [facility] on 5150 for DTS. Pt attempted suicide by overdosing and propane and stated "I wont be safe if I go home, Im just being honest. This one (attempt) should have stuck." Pt continues to present with suicidal ideation. Pt took 4 sleeping pills and turned her propane on in her trailer. Neighbors smelled propane and called 911. Assessment What has happened this shift: Received Pt sleeping in bed w/o distress at change of shift. She awoke and attended breakfast and took AM meds w/o issue. Pt pleasant and cooperative and attended unit activities, including patio time. Pt visited by daughter and enjoyed her visit. She was very happy to see her daughte and get pictures of her grandchildren. Pt upset that her visit interupted by conversation with PA about going to an In-pt Rehab. She states not liking being told what to do and being locked up. Would rather go to [facility], but her daughter agreed with the PA which is making her consider it more. Pt had anxiety in afternoon and received atarax and ativan. Helped her put up two pics of grandchildren and she was gratful. Overall appears a little brighter and well kempt today in her own clothes and post daughters visit. S/I, H/I: Denies A/VH: denies Sleep: laid down a couple of times today. ADL's: independent Group attendance: yes Were meds taken: yes Any med S/E: none reported or observed Mental Status Exam Appearance: patient's Eye contact:direct Behavior: social Speech:clear Mood: depressed Affect: pleasant Thought process: linear Thought Content: wanting to go home. Cognition: fair Insight: fair Judgment: poor Interventions PRN's used: Atarax X1 Ativan X1 Therapeutic interventions: 1:1 assessment, medication education, therapeutic listening, Q15 minute safety checks Restraints/seclusion/emergency medication: none
[2019-01-18 19:39] VITALS: BP 80/45
[2019-01-18] MEDS: atorvastatin 20mg tablet PO SCH (20:39)
[2019-01-18] MEDS: traZODone 50mg tablet PO PRN (20:39)
--- NOTE | 2019-01-19 02:24 | NUR ---
Nursing Progress Note: Legal hold:515 Client on voluntary/involuntary status for GD/DTS/DTO: DTS Report received from Molly SAMANIEGO Why are they here: Pt arrived to [facility] for [facility] on 5150 for DTS. Pt attempted suicide by overdosing and propane and stated "I wont be safe if I go home, Im just being honest. This one (attempt) should have stuck." Pt continues to present with suicidal ideation. Pt took 4 sleeping pills and turned her propane on in her trailer. Neighbors smelled propane and called 911. Assessment What has happened this shift: Pt sleeping in bed at change of shift. She awoke easily to take meds and go to group room for snack. Per pt she participated in all groups including going outside today. She is pleasant and cooperative. Pt denies depression or SI. Pt said she "feels great". Pt is considering In Pt rehab at [facility] when she is discharged from here. She said she will do the Out pt rehab if she decides not to do the In Pt. Encouraged to consider In Pt treatment. S/I, H/I: Denies A/VH: denies Sleep: Asleep at this time ADL's: independent Group attendance: yes Were meds taken: yes Any med S/E: none reported or observed Mental Status Exam Appearance: Clean well groomed Eye contact:direct Behavior: social Speech:clear Mood: pleasant Affect: pleasant Thought process: linear Thought Content: wanting to go home. Cognition: fair Insight: fair Judgment: poor Interventions PRN's used: Therapeutic interventions: 1:1 assessment, medication education, therapeutic listening, Q15 minute safety checks Restraints/seclusion/emergency medication: none
[2019-01-19 07:47] VITALS: BP 97/60
[2019-01-19] MEDS: estradiol 1mg tablet PO SCH (08:11)
[2019-01-19] MEDS: celeCOXIB 100mg capsule PO SCH ×2 (08:11→20:03)
[2019-01-19] MEDS: venlafaxine XR 75mg capsule (Q24H) PO SCH (08:11)
[2019-01-19] MEDS: aspirin 81mg tab.chew PO SCH (08:11)
[2019-01-19] MEDS: acetaminophen 325mg tablet PO PRN (09:14)
[2019-01-19] MEDS: hydrOXYzine 25 MG tablet PO PRN (13:08)
[2019-01-19] MEDS: LORazepam 1 MG tablet PO PRN (15:31)
--- NOTE | 2019-01-19 17:12 | NUR ---
Nursing Progress Note: Legal hold:5150 Client on involuntary status for DTS Report received from Erika SAMANIEGO Why are they here: Pt arrived to [place] for [facility] on 5150 for DTS. Pt attempted suicide by overdosing and propane and stated "I wont be safe if I go home, Im just being honest. This one (attempt) should have stuck." Pt continues to present with suicidal ideation. Pt took 4 sleeping pills and turned her propane on in her trailer. Neighbors smelled propane and called 911. Assessment What has happened this shift: Pt up and visible on the unit today, interacting appropriately with staff and peers. Some peers got into being rude to the staff, but she did not engage with them once this started. Pt denies depression and suicidal thoughts and says she is ready to get on with my life Pt did attend all groups and meals. Pt is voicing plan to followup with [facility] as an outpt. And she called today to arrange an intake appt. Their office was closed due to and she stated she would call tomorrow. S/I, H/I: Denies A/VH: denies Sleep: laid down a couple of times today. ADL's: independent Group attendance: yes Were meds taken: yes Any med S/E: none reported or observed Mental Status Exam Appearance: patient's Eye contact:direct Behavior: social Speech:clear Mood: depressed Affect: pleasant Thought process: linear Thought Content: wanting to go home. Cognition: fair Insight: fair Judgment: poor Interventions PRN's used: Atarax, Ativan and tylenol Therapeutic interventions: 1:1 assessment, medication education, therapeutic listening, Q15 minute safety checks Restraints/seclusion/emergency medication: none
[2019-01-19] MEDS: traZODone 50mg tablet PO PRN (20:03)
[2019-01-19] MEDS: atorvastatin 20mg tablet PO SCH (20:03)
[2019-01-19 20:21] VITALS: BP 106/63
--- NOTE | 2019-01-19 20:38 | NUR ---
Nursing Progress Note: Legal hold:5150 Client on involuntary status for DTS Report received from Molly SAMANIEGO Why are they here: Pt arrived to [place] for [facility] on 5150 for DTS. Pt attempted suicide by overdosing and propane and stated "I wont be safe if I go home, Im just being honest. This one (attempt) should have stuck." Pt continues to present with suicidal ideation. Pt took 4 sleeping pills and turned her propane on in her trailer. Neighbors smelled propane and called 911. Assessment What has happened this shift: Pt was sitting in group room at change of shift. Pt states she would like to be released because she is concerned about the costs to stay here, and she would like to go to [facility]. Pt states she felt good about staying until she found out deductible. Per report deductible has been paid. Pt states regardless if deductible is paid they only pay 70% and she is worried about the 30% she will pay if not released soon. Spoke with patient about taking care of her health as her number one concern, pt agrees but states she is not suicidal anymore and feels she is ready to go to a program. Pt reports she has been having nightmares at night but hasnt mentioned them until tonight. Pt spent evening coloring in group room talking with peers before going to bed. Pt reports appetite is good. S/I, H/I: Denies A/VH: denies Sleep: went to bed early ADL's: independent Group attendance: socialized in group room coloring before bed Were meds taken: yes Any med S/E: none reported or observed Mental Status Exam Appearance: patient wearing her own clothing, jeans, tshirt and sweatshirt. adequately groomed Eye contact:direct Behavior: social Speech:clear Mood: depressed Affect: constricted Thought process: linear Thought Content: wanting to go home. Cognition: fair Insight: fair Judgment: poor Interventions PRN's used: none Therapeutic interventions: 1:1 assessment, medication education, therapeutic listening, Q15 minute safety checks Restraints/seclusion/emergency medication: none
[2019-01-20 07:25] VITALS: BP 91/40
[2019-01-20] MEDS: venlafaxine XR 75mg capsule (Q24H) PO SCH (07:42)
[2019-01-20] MEDS: aspirin 81mg tab.chew PO SCH (07:42)
[2019-01-20] MEDS: celeCOXIB 100mg capsule PO SCH (07:42)
[2019-01-20] MEDS: estradiol 1mg tablet PO SCH (07:42)
[2019-01-20] MEDS: hydrOXYzine 25 MG tablet PO PRN (11:04)
[2019-01-20] MEDS ORDERED: TRAZ-251 PO (12:52)
[2019-01-20] MEDS ORDERED: VENL75CA61 PO (12:52)
[2019-01-20] MEDS ORDERED: ATOR20TA PO (12:52)
--- NOTE | 2019-01-20 16:20 | NUR ---
Pt was accompanied by Dorita Dale off the unit @1500 to go to her home transported by her friend. She has all of her valuables and medications on her person. She has follow up appointments scheduled with Dr Segovia on 01/27 @1:30, therapist Sky 01/28 @3:45 and VOHANY on 01/26 @8am. She has an upbeat and anxious mood and denies any SI. She has improved since admit and shows no acute physical or emotional distress. She was offered a nicotine replacement but denied wanting one.
== END 2019-01-20 15:00 | disposition home or self-care (01) | DRG 885 ==
LOC: ADULT MH 12:43
PROVIDERS: ADMIT Psychiatry & Neurology Psychiatry; ATTEND Psychiatry & Neurology Psychiatry
DX: F33.2 Major depressive disorder, recurrent severe without psychotic features (principal); R45.851 Suicidal ideations; E78.5 Hyperlipidemia, unspecified; F15.21 Other stimulant dependence, in remission; G89.29 Other chronic pain; I10 Essential (primary) hypertension; I25.10 Atherosclerotic heart disease of native coronary artery without angina pectoris; M41.9 Scoliosis, unspecified; Z91.14 Patient's other noncompliance with medication regimen; Z83.3 Family history of diabetes mellitus; Z82.49 Family history of ischemic heart disease and other diseases of the circulatory system; Z81.8 Family history of other mental and behavioral disorders
CPT/HCPCS: 36415; 80053; 80061; 83036; 84443; 85025; 87081; 94760; 97161; 97530; 99285; Z7610

== ENCOUNTER 2019-08-25 18:25 | Emergency (ER) | payer MEDICARE ==
[~2019-08-25] VITALS: Ht 175.3 cm; Wt 62.7 kg
[~2019-08-25 18:25] MED LIST changes: +ASPI-1265 PO; +ATOR20TA PO; -GABA-532 PO; -POTA10TA19 PO; -TRAM50TA2 PO; -TRAZ-219 PO; +TRAZ-251 PO
[2019-08-25] MEDS ORDERED: ondansetron/PF 4mg/2ml inj IV PRN (18:30)
[2019-08-25] MEDS ORDERED: LIDOcaine 1% W/epiNEPHrine 1:200,000 10ml vial IJ ONE ×2 (18:30→19:40)
[2019-08-25] MEDS ORDERED: TETanus/Pertussis (Acell)/Diphther VAC/PF (Tdap-Adult) 0.5ml syringe IMVAC ONE (18:30)
[2019-08-25] MEDS ORDERED: normal saline 1000ML IV soln IVB ONE (18:30)
[2019-08-25] MEDS ORDERED: iohexol 350MG/ML 100ml bottle IV ONE (18:33)
--- NOTE | 2019-08-25 18:44 | NUR ---
Dr Baltazar wants [facility] contacted. Pt is in agreement.
--- NOTE | 2019-08-25 18:45 | NUR ---
Della Riddle is at the bedside interviewing pt.
--- NOTE | 2019-08-25 18:49 | NUR ---
Called [facility] spoke with Virginia. She will be calling to speak with the patient when the patient is back in the room. Virginia stated the patient needs to call for an assessment of need. phone number [phone]
--- NOTE | 2019-08-25 18:54 | NUR ---
pt off to CT
[2019-08-25] MEDS ORDERED: ceFAZolin 1000mg inj IV ONE (19:10)
[2019-08-25] MEDS: fentaNYL/PF 50MCG/1 ML 2ML syringe IV PRN ×3 (19:17→20:25)
[2019-08-25] MEDS ORDERED: gentamicin in saline, iso-osm 80 MG/50 ML premix IV ONE (19:25)
[2019-08-25] MEDS ORDERED: gentamicin inj 80 MG in normal saline 100ml IV soln 98 ML IV ONE (19:30)
--- NOTE | 2019-08-25 20:27 | NUR ---
Pts. left leg lac. irrigated using 1L NS. Pt was painful but had her take deep breaths throughout. Made a phonecall to friend for a ride. home.
[2019-08-25] MEDS ORDERED: ONDA4TAB6 PO (21:03)
[2019-08-25] MEDS ORDERED: CLIN150C2 PO (21:03)
[2019-08-25] MEDS ORDERED: HYDR-3965 PO (21:03)
[2019-08-25] MEDS ORDERED: ondansetron/PF 4mg/2ml inj IV ONE (21:15)
[2019-08-25] MEDS ORDERED: HYDROcodone/acetaminophen 10/325mg tab PO ONE (21:15)
[2019-08-25 21:42] VITALS: BP 110/80
== END 2019-08-25 22:17 | disposition home or self-care (01) ==
LOC: ER 18:25
DX: S71.112A Laceration without foreign body, left thigh, initial encounter (principal); M19.90 Unspecified osteoarthritis, unspecified site; G89.29 Other chronic pain; F32.9 Major depressive disorder, single episode, unspecified; F12.90 Cannabis use, unspecified, uncomplicated; F15.90 Other stimulant use, unspecified, uncomplicated; Z98.890 Other specified postprocedural states; Z88.0 Allergy status to penicillin; Z79.82 Long term (current) use of aspirin; Z79.2 Long term (current) use of antibiotics; Z79.899 Other long term (current) drug therapy; W26.9XXA Contact with unspecified sharp object(s), initial encounter; Y93.89 Activity, other specified; Y92.89 Other specified places as the place of occurrence of the external cause; Y99.8 Other external cause status
CPT/HCPCS: 12001; 73706; 90471; 90715; 96365; 96375; 96376; 99285; J1580; J2405; J3010; J7030; Q9967

== ENCOUNTER 2019-10-06 14:40 | Emergency (ER) | payer MEDICARE ==
[~2019-10-06] VITALS: Ht 175.3 cm; Wt 59.1 kg
[~2019-10-06 14:40] MED LIST changes: +ONDA4TAB6 PO
--- NOTE | 2019-10-06 15:16 | NUR ---
PT MEDS BAGGED AND GIVEN TO PHARMACIST VIKKI TO TAKE TO PHARMACY
--- NOTE | 2019-10-06 15:17 | NUR ---
PT PLACED IN ROOM 17 TILL ROOM OPEN
[2019-10-06 15:28] LABS: HEMOGLOBIN 12.8 g/dl (12.0-16.0); LYMPHOCYTES # (AUTO) 1.7 X10'3 (1.1-4.8); MONOCYTES # (AUTO) 0.3 X10'3 (0-0.9); WHITE BLOOD COUNT 4.4 X10'3 (4.5-11.0)
[2019-10-06 15:31] LABS: BASOPHILS % (AUTO) 0.7 % (0-1); EOSINOPHILS % (AUTO) 0.1 % (0-6); HEMATOCRIT 38.6 % (35.0-45.0); LYMPHOCYTES % (AUTO) 39.2 % (21-51); MEAN CORPUSCULAR HEMOGLOBIN 31.6 PG (27.0-31.0); MEAN CORPUSCULAR HGB CONC 33.1 g/dL (33.0-36.5); MEAN CORPUSCULAR VOLUME 95.5 FL (78-98); MEAN PLATELET VOLUME 8.9 FL (7.4-10.4); MONOCYTES % (AUTO) 6.2 % (2-12); NEUTROPHILS # (AUTO) 2.4 X10'3 (1.8-7.7); NEUTROPHILS % (AUTO) 53.8 % (42-75); PLATELET COUNT 313 X10'3 (140-440); RED BLOOD COUNT 4.04 X10'6 (4.20-5.60); RED CELL DISTRIBUTION WIDTH 12.6 % (11.5-14.5)
[2019-10-06 15:47] LABS: ACETAMINOPHEN 3.3 UG/ML (10-30); ALANINE AMINOTRANSFERASE 28 U/L (12-78); ALBUMIN 3.7 G/DL (3.4-5.0); ALBUMIN/GLOBULIN RATIO 1.1 (1.1-1.5); ALKALINE PHOSPHATASE 105 IU/L (46-116); ANION GAP 9 (8-16); ASPARTATE AMINO TRANSFERASE 19 U/L (10-37); BILIRUBIN,TOTAL 0.2 MG/DL (0.1-1.0); BLOOD UREA NITROGEN 8 MG/DL (7-18); BUN/CREATININE RATIO 8.7 (6.6-38.0); CALCIUM 8.4 MG/DL (8.5-10.1); CHLORIDE 103 MMOL/L (99-107); CREATININE 0.92 MG/DL (0.40-0.90); ETHANOL < 0.010 GM/DL (0.0-0.010); GLUCOSE 90 MG/DL (70-104); POTASSIUM 3.6 MMOL/L (3.5-5.1); SODIUM 140 MMOL/L (135-145); TOTAL PROTEIN 7.2 G/DL (6.4-8.2); eGFR 63 ML/MIN
--- NOTE | 2019-10-06 18:37 | NUR ---
patient in bed eys closed covers on rr even un labored no observable s/s of acute stress at this time will continue to monitor
--- NOTE | 2019-10-06 19:13 | NUR ---
patient at bedside eating dinner appears to be in no observale acute stress at this time will continue to monitor
--- NOTE | 2019-10-06 19:42 | NUR ---
PATIENT ATE 100% OF DINNER, PATIENTS RR EVEN UN LABORED NO OBSERVABLE S/S OF ACUTE STRESS AT THIS TIME WILL CONTINUE TO MONITOR
[2019-10-06 19:53] LABS: URINE HCG NEGATIVE (NEG)
[2019-10-06 19:57] LABS: CLARITY,URINE CLEAR (Clear); COLOR,URINE YELLOW (Yellow); GLUCOSE, URINE NEGATIVE (Neg); KETONES,URINE NEGATIVE (Neg); LEUKOCYTE ESTERASE ,URINE NEGATIVE (Neg); NITRITES, URINE NEGATIVE (Neg); OCCULT BLOOD,URINE NEGATIVE (Neg); PH,URINE 8.5 (4.8-8.0); PROTEIN,URINE TRACE mg/dl (Neg)
[2019-10-06 20:04] LABS: UA COLLECTION TYPE CLN CATCH MIDSTREAM
[2019-10-06 20:05] LABS: BACTERIA,URINE NONE SEEN /HPF (Neg); RBC,URINE NONE SEEN /HPF (0-2); SQUAMOUS EPITHELIAL CELL,UR FEW /LPF (FEW); WBC,URINE NONE SEEN /HPF (0-4)
[2019-10-06 20:06] LABS: URINE AMPHETAMINE SCREEN NEGATIVE (Neg); URINE BARBITUATE SCREEN NEGATIVE (Neg); URINE BENZODIAZEPINES SCREEN NEGATIVE (Neg); URINE CANNABINOID SCREEN POSITIVE (Neg); URINE COCAINE SCREEN POSITIVE (Neg); URINE METHADONE SCREEN NEGATIVE (Neg); URINE OPIATE SCREEN NEGATIVE (Neg); URINE PHENCYCLIDINE SCREEN NEGATIVE (Neg)
--- NOTE | 2019-10-06 20:14 | NUR ---
Patient moved from room 13 to bed 10
[2019-10-06] MEDS ORDERED: ALPRAZolam 0.5mg tablet PO ONE (20:50)
--- NOTE | 2019-10-06 22:16 | NUR ---
pt is now in bed 25 in overflow from ED rm 10. Pt's medications were sent to pharmacy prior to doing a med rec. spoke with pharmacist who will put them in the computer and will be verified by nursing staff next.
[2019-10-06] MEDS ORDERED: TOPI50TA PO ×2 (22:23→22:26)
[2019-10-06] MEDS ORDERED: VENL150T3 PO (22:23)
[2019-10-06] MEDS ORDERED: ESTR1TAB19 PO (22:23)
[2019-10-06] MEDS ORDERED: CLIN-142 PO (22:23)
[2019-10-06] MEDS ORDERED: TRAM50TA2 PO ×2 (22:23→22:26)
[2019-10-06] MEDS ORDERED: EMTR1TAB12 PO (22:23)
[2019-10-06] MEDS ORDERED: BACL20TA PO (22:23)
[2019-10-06] MEDS ORDERED: TRAZ150T78 PO (22:24)
[2019-10-06] MEDS ORDERED: BACL-11 PO (22:25)
[2019-10-06] MEDS ORDERED: traZODone 150mg tablet PO ONE (23:30)
[2019-10-06] MEDS ORDERED: baclofen 10mg tablet PO PRN (23:40)
--- NOTE | 2019-10-06 23:51 | NUR ---
PACKET FAXED TO [facility]
[2019-10-07] MEDS ORDERED: topiramate 25mg tablet PO SCH (08:00)
[2019-10-07] MEDS ORDERED: emtricitabine/tenofovir 200mg/300mg tablet PO SCH (08:00)
[2019-10-07] MEDS ORDERED: traMADol 50MG tablet PO SCH (08:00)
[2019-10-07] MEDS ORDERED: estradiol 1mg tablet PO SCH (08:00)
--- NOTE | 2019-10-07 14:06 | NUR ---
sent primary nurse to lunch, patient laying on her left side sleeping, respirations appear normal and she is not in any distress at this time.
--- NOTE | 2019-10-07 16:54 | NUR ---
sent primary nurse on a break, the patient was lying on her right side sleeping, respirations appeared normal and she was not in any distress at this time.
[2019-10-07 16:58] VITALS: BP 100/54
--- NOTE | 2019-10-07 18:45 | NUR ---
Assumed care of the patient from BRITTNEY Dominguez when the patient was moved from overflow to ED bed 10 to continue being monitored while awaiting available staff and room assignment in [facility] for 5150 admission. Pt has a sitter at the bedside. Pt is calm and cooperative at this time.
--- NOTE | 2019-10-07 19:15 | NUR ---
Pt is requesting something to anxiety. Pt is aware bedtime medications are pending at 2100 and is agreeable to waiting for those medication doses.
--- NOTE | 2019-10-07 19:45 | NUR ---
Phoned and gave report to BRITTNEY Cano in [facility].
[2019-10-07] MEDS ORDERED: venlafaxine XR 75mg capsule (Q24H) PO SCH (21:00)
[2019-10-07] MEDS ORDERED: traZODone 150mg tablet PO SCH (21:00)
[2019-10-10] MEDS ORDERED: ARIP2TAB20 PO (14:11)
[2019-10-10] MEDS ORDERED: HYDR-4383 PO (14:11)
[2019-10-10] MEDS ORDERED: ACYC-202 PO (14:11)
== END 2019-10-07 21:40 ==
LOC: ER 14:41 → ED HOLD 10-07 19:00 → UNDOADMIN 10-07 19:00 → ER 10-07 21:40 → UNDODISIN 10-07 21:45
DX: F32.9 Major depressive disorder, single episode, unspecified (principal); R45.851 Suicidal ideations; G89.29 Other chronic pain; F15.20 Other stimulant dependence, uncomplicated; F14.20 Cocaine dependence, uncomplicated; M54.5 Low back pain
CPT/HCPCS: 36415; 80053; 80178; 80305; 80320; 80329; 81001; 81025; 85025; 99285; G0378

== ENCOUNTER 2020-02-24 02:48 | Emergency (ER) | payer MEDICARE ==
[~2020-02-24] VITALS: Ht 175.3 cm; Wt 62.3 kg
[~2020-02-24 02:48] MED LIST changes: +ACYC-202 PO; -ALBU8.5H8 INH; +ARIP2TAB20 PO; -ASPI-1265 PO; -ATOR20TA PO; +BACL-11 PO; -EST1T PO; +ESTR1TAB19 PO; +HYDR-4383 PO; -ONDA4TAB6 PO; +TOPI50TA PO; +TRAM50TA2 PO; -TRAZ-251 PO; +TRAZ150T78 PO; +VENL150T3 PO; -VENL75CA61 PO
[2020-02-24 03:19] LABS: BASOPHILS # (AUTO) 0.1 X10'3 (0-0.2); EOSINOPHILS % (AUTO) 0 % (0-6); HEMATOCRIT 39.4 % (35.0-45.0); HEMOGLOBIN 13.3 g/dl (12.0-16.0); LYMPHOCYTES # (AUTO) 2.2 X10'3 (1.1-4.8); LYMPHOCYTES % (AUTO) 34.5 % (21-51); MEAN CORPUSCULAR HEMOGLOBIN 30.4 PG (27.0-31.0); MEAN CORPUSCULAR HGB CONC 33.8 g/dL (33.0-36.5); MEAN CORPUSCULAR VOLUME 89.8 FL (78-98); MEAN PLATELET VOLUME 8.4 FL (7.4-10.4); MONOCYTES # (AUTO) 0.6 X10'3 (0-0.9); MONOCYTES % (AUTO) 8.7 % (2-12); NEUTROPHILS # (AUTO) 3.5 X10'3 (1.8-7.7); NEUTROPHILS % (AUTO) 55.8 % (42-75); PLATELET COUNT 271 X10'3 (140-440); RED BLOOD COUNT 4.39 X10'6 (4.20-5.60); WHITE BLOOD COUNT 6.4 X10'3 (4.5-11.0)
[2020-02-24 03:31] LABS: ALANINE AMINOTRANSFERASE 42 U/L (12-78); ALBUMIN 4.2 G/DL (3.4-5.0); ALBUMIN/GLOBULIN RATIO 1.2 (1.1-1.5); ALKALINE PHOSPHATASE 111 IU/L (46-116); ANION GAP 13 (8-16); ASPARTATE AMINO TRANSFERASE 29 U/L (10-37); BILIRUBIN,TOTAL 0.5 MG/DL (0.1-1.0); BLOOD UREA NITROGEN 16 MG/DL (7-18); BUN/CREATININE RATIO 15.7 (6.6-38.0); CALCIUM 9.2 MG/DL (8.5-10.1); CHLORIDE 103 MMOL/L (99-107); CREATININE 1.02 MG/DL (0.40-0.90); GLUCOSE 143 MG/DL (70-104); LIPASE 96 U/L (73-393); POTASSIUM 3.7 MMOL/L (3.5-5.1); SODIUM 137 MMOL/L (135-145); TOTAL PROTEIN 7.6 G/DL (6.4-8.2); eGFR 56 ML/MIN
[2020-02-24] MEDS ORDERED: normal saline 1000ML IV soln IVB ONE (03:35)
[2020-02-24] MEDS ORDERED: morphine 4 MG/ML inj SYRINge IV PRN (03:35)
[2020-02-24] MEDS ORDERED: ketorolac trometh. 30mg/ml inj. IV ONE (03:35)
[2020-02-24] MEDS ORDERED: ondansetron/PF 4mg/2ml inj IV ONE (03:35)
[2020-02-24 04:00] LABS: URINE HCG NEGATIVE (NEG)
[2020-02-24 04:03] LABS: CLARITY,URINE SLIGHTLY CLOUDY (Clear); COLOR,URINE YELLOW (Yellow); GLUCOSE, URINE NEGATIVE (Neg); KETONES,URINE TRACE mg/dl (Neg); LEUKOCYTE ESTERASE ,URINE NEGATIVE (Neg); NITRITES, URINE NEGATIVE (Neg); OCCULT BLOOD,URINE NEGATIVE (Neg); PH,URINE 5.5 (4.8-8.0); PROTEIN,URINE NEGATIVE (Neg); UROBILINOGEN,URINE 0.2 E.U/dL (0.2-1.0)
[2020-02-24 04:05] LABS: UA COLLECTION TYPE CLN CATCH MIDSTREAM
[2020-02-24 04:10] LABS: BACTERIA,URINE 3+ /HPF (Neg); RBC,URINE 0-2 /HPF (0-2); SQUAMOUS EPITHELIAL CELL,UR MANY /LPF (FEW); WBC,URINE 0-4 /HPF (0-4)
[2020-02-24] MEDS ORDERED: TRAM50TA2 PO (04:20)
[2020-02-24 04:56] VITALS: BP 99/64
== END 2020-02-24 04:58 | disposition home or self-care (01) ==
LOC: ER 02:48
DX: M54.5 Low back pain (principal); M19.90 Unspecified osteoarthritis, unspecified site; F12.90 Cannabis use, unspecified, uncomplicated; G89.29 Other chronic pain; Z98.890 Other specified postprocedural states; Z88.0 Allergy status to penicillin; Z88.1 Allergy status to other antibiotic agents; Z79.899 Other long term (current) drug therapy
CPT/HCPCS: 36415; 74176; 80053; 81001; 81025; 83690; 85025; 96361; 96374; 96375; 99284; J1885; J2270; J2405; J7030

== ENCOUNTER 2021-01-16 12:05 | Emergency (ER) | payer MEDICARE ==
[~2021-01-16] VITALS: Ht 162.6 cm; Wt 70.0 kg
[~2021-01-16 12:05] MED LIST changes: +ACYC-128 PO; -ACYC-202 PO
[2021-01-16] MEDS ORDERED: LORazepam 2 mg/ml vial IV ONE (12:40)
[2021-01-16] MEDS ORDERED: LORA-269 PO (13:56)
[2021-01-16] MEDS ORDERED: FLUT1DIS INH (13:57)
[2021-01-16 15:30] VITALS: BP 110/75
--- NOTE | 2021-01-16 15:30 | NUR ---
PATIENT REQUESTED TO ALLOW REMOVAL OF IV WHILE WALKING OUT, SHE WOULD NOT STOP. ATTEMPTED TO CALL HER AT HER CELL, NO RESPONSE. DANCING MASTER AWARE
--- NOTE | 2021-01-16 16:44 | NUR ---
NIDIA NOTIFIED TO DO A WELFARE CHECK SO THAT IV MAY BE DISCONTINUED. ANIMAL SCIENTIST AWARE
== END 2021-01-16 15:37 | disposition home or self-care (01) ==
LOC: ER 12:05
DX: F41.0 Panic disorder [episodic paroxysmal anxiety] (principal); Z20.822 Contact with and (suspected) exposure to COVID-19; M19.90 Unspecified osteoarthritis, unspecified site; G89.29 Other chronic pain; F12.90 Cannabis use, unspecified, uncomplicated; Z98.890 Other specified postprocedural states; Z88.0 Allergy status to penicillin; Z88.1 Allergy status to other antibiotic agents; Z79.2 Long term (current) use of antibiotics; Z79.899 Other long term (current) drug therapy
CPT/HCPCS: 71045; 87635; 96374; 99284; C9803; J2060